=== PATIENT | male | born 2005 | race Hispanic/Latino ===

== ENCOUNTER 2025-08-30 10:30 | Emergency (ER) | payer BC, SELFPAY ==
--- NOTE | 2025-08-30 10:46 | ED_ITS ---
HPI - URI/Sore Throat General Chief Complaint: Upper Respiratory Infection Stated Complaint: SINUS PRESSURE/DRAINAGE/SORE THROAT Time Seen by Provider: 08/30/25 10:46 Source: patient Mode of arrival: ambulatory Limitations: no limitations History of Present Illness HPI Narrative: 20 yo M presents with sinus congestion, pressure, L ear pain for 5 days. Afebrile. Taking dayquil. All systems reviewed and negative except as noted above. Related Data Home Medications ?Medication ?Instructions ?Recorded ?Confirmed ?Last Taken ?Type fluoxetine 20 mg capsule mg 08/30/25 Unknown History fluoxetine 40 mg capsule 40 mg PO DAILY 08/30/2508/10 Unknown History methylphenidate HCl 27 mg mg PO 08/30/25 Unknown Hist ory tablet,extended release 24 hr Allergies Allergy/AdvReac Type Severity Reaction Status Date / Time No Known Allergies Allergy Verified 08/30/25 10:45 [facility] Comments At time of signature, agree with nursing past medical, surgical, social and family history. There is no relevant family history pertinent to the presenting complaint. Exam Narrative: GENERAL: This is a well-nourished, well-developed patient, in no apparent distress. HEAD: normocephalic, atraumatic. EYES: PERRL. Sclera clear/white. Vision is grossly intact. EARS: External ears normal, auditory canals clear and without drainage, TMs normal without perforation. Hearing grossly intact. NOSE: External nose normal with clear nasal drainage, erythema to nares with mild swelling THROAT: Mucous membranes moist, posterior pharynx clear. NECK: Neck supple, non-tender without lymphadenopathy, masses or thyromegaly. CARDIOVASCULAR: Regular rate and rhythm without murmurs, gallops, or rubs. RESPIRATORY: Clear to auscultation. Breath sounds equal bilaterally. No wheezes, rales, or rhonchi. SKIN: warm, Dry, intact with no suspicious lesions or rash, good texture and turgor. NEURO: awake, alert, and oriented to person, place and time. There were no obvious focal neurologic abnormalities. EXTREMITIES: No joint tenderness, effusion, or edema noted. Course Course Level of Care: Express Care Visit Vital Signs Vital signs: Vital Signs Temperature 36.6 C 08/30/25 10:47 Pulse Rate 71 08/30/25 10:47 Respiratory Rate 16 08/30/25 10:47 Blood Pressure 145/85 H 08/30/25 10:47 Pulse Oximetry 100 08/30/25 10:47 Temperature 36.6 C 08/30/25 10:47 Pulse Rate 71 08/30/25 10:47 Respiratory Rate 16 08/30/25 10:47 Blood Pressure 145/85 H 08/30/25 10:47 Pulse Oximetry 100 08/30/25 10:47 Reviewed MDM - URI/Sore Throat MDM Narrative Medical decision making narrative: Sinus symptoms x5 days. Patient is well-appearing, nontoxic. Lungs clear to auscultation. Negative COVID and influenza testing. Recommend [id number] medications to treat viral symptoms. Differential Diagnosis Differential diagnosis: Likely upper respiratory infection, otitis media, sinusitis, viral infection and influenza Lab Data Labs: Lab Results 08/30/25 Range/Units 10:42 POC Influenza A Ag Negative (Negative) POC Influenza B Ag Negative (Negative) POC SARS CoV-2 Ag Negative (Negative) Discharge Plan Discharge Clinical Impression: Acute viral sinusitis Patient Disposition: Home Condition: Stable Instructions: Sinusitis (ED) Additional Instructions: Your COVID and influenza test was negative today. Your symptoms are viral and may last 10-14 days. Purchase [id number] Claritin D and take as directed on packaging. Drink at least 64 oz of water a day. Place cool mist humidifier in bedroom where you sleep. See your primary care physician if symptoms are not improving. Patient Language: Latvian Prescriptions: New fluticasone propionate [Flonase Allergy Relief] 50 mcg/actuation spray,suspension 1 spray intranasal BID Qty: 16 0RF Rx Instructions: administer into each nostril No Action fluoxetine 20 mg capsule methylphenidate HCl 27 mg tablet extended release 24hr PO fluoxetine 40 mg capsule 40 mg PO DAILY Follow-up/Referrals: PHYSICIAN,PREPAROLE COUNSELING AIDE [Primary Care Provider, Internal Medicine] Stand Alone Forms: Work/School Release IP Time of Disposition: 11:04
[2025-08-30 10:47] VITALS: BP 145/85; PULSE 71; RESP 16; TEMP 36.6; O2SAT 100
[2025-08-30 14:13] LABS: EDCOVIDSCREEN Negative (Negative); EDINFLUASCREEN Negative (Negative); EDINFLUBSCREEN Negative (Negative)
== END 2025-08-30 11:07 | disposition home or self-care (01) ==
PROVIDERS: Emergency Provider Nurse Practitioner Family
DX: J01.90 Acute sinusitis, unspecified (principal); Z20.822 Contact with and (suspected) exposure to COVID-19
CPT/HCPCS: 87426; 87804; 99213; G0463